=== PATIENT | male | born 1960 | race Caucasian/White ===

== ENCOUNTER 2022-02-27 13:47 | Emergency (ER) | payer OTHER ==
[~2022-02-27] VITALS: Ht 177.8 cm; Wt 72.7 kg
[~2022-02-27 13:47] MED LIST: AMOX875T2 PO; HYDR-3713 PO; KETO10TAB PO
[2022-02-27 13:48] VITALS: BP 129/83
== END 2022-02-27 15:19 | disposition home or self-care (01) ==
LOC: M ED 13:47
DX: Z48.02 Encounter for removal of sutures (principal)